=== PATIENT | male | born 1960 | race Caucasian/White ===

== ENCOUNTER → 2017-07-15 | Outpatient (CLI) | payer OTHER ==
--- NOTE | 2017-07-15 13:40 | RAD ---
Exam performed: Nuclear medicine PET scan. 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 Date of service: 07/15/17. Comparison: No previous exams are available for comparison. Technique: Patient was injected 10 15.0 5 mCi of F-18 FDG intravenously and delayed whole-body images are obtained from the skull base to the mid thighs. Corresponding noncontrast enhanced images are obtained for the purposes of attenuation correction and anatomical correlation. Patient's fasting blood glucose level at the time of injection measures 102 mg/dL. Findings: There is a small area of hypermetabolic activity in the anal region demonstrating intense hypermetabolic activity with SUV values up to 4.8. There is symmetric mild activity around the focal cords with SUV value 8.4 probably physiological. Streak artifacts from dental filling limit evaluation of the oral cavity, however no discrete hypermetabolic lesions are identified. Brain appears normal without hypermetabolic activity. No pathologically hypermetabolic activity is seen in the neck, chest or abdomen. No hypermetabolic neck, axillary, hilar or mediastinal lymph nodes are seen. No abnormal abdominal pelvic lymphadenopathy is identified. Diffuse atheromatous aortic calcification. Spondylotic changes. Impression: Area of abnormal hypermetabolic activity in the anal canal with SUV value of up to 4.8. Evaluation with sigmoidoscopy exam and biopsy, if indicated may be of additional benefit. No definite hypermetabolic activity seen in the oral cavity although the evaluation is somewhat limited due to presence of dental fillings and a small area of hypermetabolic activity may be obscured. Symmetric activity around the vocal cords is presumed physiological. PQRS Compliance Statement: One or more of the following individualized dose reduction techniques were utilized for this examination: 1. Automated exposure control 2. Adjustment of the mA and/or kV according to patient size 3. Use of iterative reconstruction technique
== END | disposition home or self-care (01) ==
LOC: PETSC 09:08
PROVIDERS: ATTEND Nurse Practitioner Family
DX: C76.0 Malignant neoplasm of head, face and neck (principal)
CPT/HCPCS: 78815; A9552

== ENCOUNTER → 2017-08-27 | Day surgery (SDC) | payer OTHER ==
[~2017-08-27] MED LIST: AMLO5TAB4 PO; ATOR10TA60 PO; CALC200T3 PO; CARV12.5 PO; CIPR500T94 PO; DOCU100C28 PO; HYDR-971 PO; HYDROmorphone 2 MG/ML VIAL IV PRN; IV RINGERS,LACTATED 1000ML 1,000 ML IV SCH; LIDOCAINE 1% PF 2 ML VIAL. ID PRN; LIDOCAINE 2% PF Vial for OR 5 ML VIAL. ONE; LISI10TA2 PO; MECL25TA3 PO; METR500T PO; MORPHINE SULFATE 2 MG/ML DISP.SYRIN. IV PRN; ONDANSETRON PF 4 MG/2 ML VIAL. IV PRN; PANT40TA3 PO; PROCHLORPERAZINE 10 MG/2 ML VIAL. IV PRN; PROPOFOL 20 ML IV ONE; RANI150T6 PO; fentaNYL PF VIAL 100 MCG/2 ML VIAL IV PRN
[2017-08-27 08:20] VITALS: BP 134/85
--- NOTE | 2017-08-27 09:26 | CONS ---
DATE OF CONSULTATION: 08/27/2017 REFERRING FACILITY: [facility]. REASON FOR CONSULTATION: History of lung, head and neck cancer with abnormal PET scan of the rectum. HISTORY OF PRESENT ILLNESS: A 57-year-old male whose past medical history is significant for hypertension and hyperlipidemia as well as a history of bleeding ulcers seen with an abnormal PET scan. This was for routine surveillance for his head and neck cancers squamous cell, as well as the lung cancer. PET scan lit up in the rectal area. The patient denies any bleeding, diarrhea or constipation. There is no family history of colon polyps or colon cancer. He has not undergone previous studies and is here today. PAST MEDICAL HISTORY: Hyperlipidemia, hypertension, history of bleeding ulcers, history of lung cancer, history of head and neck squamous cell cancers. ALLERGIES: None. MEDICATIONS: Include Delray, Norvasc, atorvastatin, carvedilol, Cipro, lisinopril, meclizine, Flagyl and Zantac. FAMILY AND SOCIAL HISTORY: He is a drinker and smoker. PAST SURGICAL HISTORY: Partial lobectomy of lung. REVIEW OF SYSTEMS: Per records. PHYSICAL EXAMINATION: GENERAL: Reveals a well-nourished, well-developed male. VITAL SIGNS: Temperature is 98.3, pulse 93, respirations 18. HEENT: Reveals thickening of the right jaw consistent with recurrent squamous cell cancer. NECK: Shows previous radiation changes. LUNGS: Decreased breath sounds bilaterally. CARDIOVASCULAR: Reveals S1, S2 without S3, S4 or appreciable murmur. ABDOMEN: Reveals soft abdomen, normal bowel sounds, without appreciable hepatosplenomegaly. EXTREMITIES: Reveals no cyanosis, clubbing or edema. IMPRESSION: Abnormal PET scan with a history of head and neck tumor and lung cancer. Differential includes imaging artifact, colon polyps, colon cancer, metastatic lung/head and neck cancer. Therefore, recommend sigmoidoscopy with possible biopsy. Risks and benefits have been discussed. The patient is willing to proceed at this time. ADIN JONES MD DR: JO ANN/goldie JOB#: [id number] / [id number] [facility] [place]
== END | disposition home or self-care (01) ==
LOC: ENDOS 06:04
PROVIDERS: ATTEND Internal Medicine Gastroenterology
DX: K64.0 First degree hemorrhoids (principal); I25.10 Atherosclerotic heart disease of native coronary artery without angina pectoris; I10 Essential (primary) hypertension; K21.9 Gastro-esophageal reflux disease without esophagitis; F17.200 Nicotine dependence, unspecified, uncomplicated; Z72.0 Tobacco use
CPT/HCPCS: 45330; J2704; J2001

== ENCOUNTER → 2017-10-22 | Day surgery (SDC) | payer OTHER ==
[~2017-10-22] MED LIST changes: -AMLO5TAB4 PO; -ATOR10TA60 PO; -CALC200T3 PO; -CARV12.5 PO; -CIPR500T94 PO; -DOCU100C28 PO; -HYDR-971 PO; +HYDROmorphone 2 MG/ML VIAL IV; -HYDROmorphone 2 MG/ML VIAL IV PRN; -IV RINGERS,LACTATED 1000ML 1,000 ML IV SCH; +LIDOCAINE 1% PF 2 ML VIAL. ID; -LIDOCAINE 1% PF 2 ML VIAL. ID PRN; +LIDOCAINE 2% PF Vial for OR 5 ML VIAL.; -LIDOCAINE 2% PF Vial for OR 5 ML VIAL. ONE; -LISI10TA2 PO; -MECL25TA3 PO; -METR500T PO; +MORPHINE SULFATE 2 MG/ML DISP.SYRIN. IV; -MORPHINE SULFATE 2 MG/ML DISP.SYRIN. IV PRN; -ONDANSETRON PF 4 MG/2 ML VIAL. IV PRN; -PANT40TA3 PO; +PROCHLORPERAZINE 10 MG/2 ML VIAL. IV; -PROCHLORPERAZINE 10 MG/2 ML VIAL. IV PRN; +PROPOFOL 20 ML IV; -PROPOFOL 20 ML IV ONE; -RANI150T6 PO; +fentaNYL PF VIAL 100 MCG/2 ML VIAL IV; -fentaNYL PF VIAL 100 MCG/2 ML VIAL IV PRN
[2017-10-22] MEDS: IV RINGERS,LACTATED 1000ML 1,000 ML IV (07:00)
== END | disposition home or self-care (01) ==
LOC: ENDOS 09:07
DX: K29.50 Unspecified chronic gastritis without bleeding (principal); I25.10 Atherosclerotic heart disease of native coronary artery without angina pectoris; I10 Essential (primary) hypertension; F41.9 Anxiety disorder, unspecified; F32.9 Major depressive disorder, single episode, unspecified; F17.200 Nicotine dependence, unspecified, uncomplicated; Z88.0 Allergy status to penicillin
CPT/HCPCS: 43235; J2704